=== PATIENT | male | born 1975 | race Caucasian/White ===

== ENCOUNTER 2016-05-10 14:45 | Outpatient (CLI) | payer MEDICAID | END 2016-05-10 15:00 | disposition home or self-care (01) | DX: Z86.79 Personal history of other diseases of the circulatory system (principal) ==

== ENCOUNTER 2016-11-18 15:46 | Emergency (ER) | payer MEDICAID ==
--- NOTE | 2016-11-18 17:54 | ED Physician Documentation ---
PD HPI UPPER EXT INJURY - Stated complaint Stated Complaint: RT ELBOW PX - Chief complaint Chief Complaint: Ext Problem - History obtained from History obtained from: Patient - History of Present Illness Location: Right, Elbow (medial aspect) Type of injury: Other (he does do repetitive use at work). No: Fall, Twist, Blunt / blow Where injury occurred: Work Timing - duration: Weeks (1-2) Timing - details: Gradual onset, Still present Worsened by: Moving, Palpating (medial epicondyle) Associated symptoms: No: Weakness, Numbness, Tingling, Discolored Similar symptoms before: Has not had sx before Recently seen: Not recently seen Review of Systems Constitutional: denies: Fever, Chills Skin: denies: Rash, Lesions PD PAST MEDICAL HISTORY - Past Medical History Cardiovascular: Hypertension Musculoskeletal: Gout - Past Surgical History Past Surgical History: Yes General: Appendectomy HEENT: Other - Present Medications Home Medications: Ambulatory Orders Medication Instructions Recorded Confirmed Dexamethasone [Decadron] 4 mg PO DAILY #5 tablet 11/18/16 HYDROcod/ACETAM 5/325 [Henefer 5/325] 1 tab PO Q6H PRN #15 tablet 11/18/16 Labetalol [Trandate] 100 mg PO DAILY 11/18/16 11/18/16 Losartan [Cozaar] 50 mg PO DAILY 11/18/16 11/18/16 Naproxen [Naprosyn] 500 mg PO BID PRN #20 tablet 11/18/16 Sertraline [Zoloft] 25 mg PO DAILY 11/18/16 11/18/16 amLODIPine [Norvasc] 5 mg PO ONCE 11/18/16 11/18/16 - Allergies Allergies/Adverse Reactions: Allergies Allergy/AdvReac Type Severity Reaction Status Date / Time No Known Drug Allergies Allergy Verified 11/18/16 15:52 - Social History Does the pt smoke?: No Smoking Status: Never smoker Does the pt drink ETOH?: No Does the pt have substance abuse?: No - Immunizations Immunizations are current?: Yes - POLST Patient has POLST: No PD ED PE NORMAL - Vitals Vital signs reviewed: Yes - General General: Alert and oriented X 3, No acute distress, Well developed/nourished - Derm Derm: Normal color, Warm and dry, No rash - Extremities Extremities: Other (right medial condyle elbow with local tenderness. No redness nor swelling. Does not appear as gout. ) - Neuro Neuro: No motor deficit, No sensory deficit Results - Vitals Vitals: Oxygen O2 Source Room air PD MEDICAL DECISION MAKING - ED course Complexity details: reviewed results (normal exray), considered differential ( medial epicondylitis. 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 ), d/w patient Departure - Departure Disposition: 01 Home, Self Care Clinical Impression: Elbow tendonitis Condition: Stable Record reviewed to determine appropriate education?: Yes Instructions: ED Epicondylitis Lateral Elbow Follow-Up: Namrata Tovar FNP [Primary Care Provider] - Dereck Barton MD [Provider Admit Priv/Credential] - Prescriptions: Dexamethasone [Decadron] 4 mg PO DAILY #5 tablet HYDROcod/ACETAM 5/325 [Henefer 5/325] 1 tab PO Q6H PRN #15 tablet PRN Reason: Pain Naproxen [Naprosyn] 500 mg PO BID PRN #20 tablet PRN Reason: Pain Comments: Limit heavy lifting and repetitive use of the right elbow and forearm for a week or so until this is improved. Naproxen twice daily for inflammation. Also add Decadron steroid anti-inflammatory daily for 5 days. Add Tylenol or hydrocodone if needed for pain. Recheck with orthopedics if not improved over the next 4-5 days or completely resolved by 1-2 weeks. Discharge Date/Time: 11/18/16 18:38
[2016-11-18 18:38] VITALS: BP 169/108
== END 2016-11-18 18:38 | disposition home or self-care (01) ==
LOC: ED 15:46
DX: M77.9 Enthesopathy, unspecified (principal); I10 Essential (primary) hypertension; M10.9 Gout, unspecified
CPT/HCPCS: 99282; 99283

== ENCOUNTER 2016-12-19 19:20 | Emergency (ER) | payer MEDICAID ==
[2016-12-19] MEDS ORDERED: LIDOCAINE 2% 10 ML MDV TOP STA (19:42)
[2016-12-19] MEDS ORDERED: DEXAMETHASONE 10 MG/ML VIAL PO STA (19:42)
--- NOTE | 2016-12-19 19:51 | ED Physician Documentation ---
History of Present Illness - Stated complaint Stated Complaint: EAR PX - Chief complaint Chief Complaint: Heent - History obtained from History obtained from: Patient - History of Present Illness Timing: How many weeks ago (3) Pain level max: 4 Pain level now: 4 Improved by: nothing Worsened by: nothing - Additonal information Additional information: Patient is a 41-year-old male who presents to the emergency department with right ear pain for the past 3 weeks. States has had mild nasal congestion, rhinorrhea, cough. No fevers. No sore throat. Has not taken anything for this. States normally has high blood pressure. Review of Systems Constitutional: denies: Fever, Chills Nose: denies: Rhinorrhea / runny nose, Congestion Throat: denies: Sore throat Skin: denies: Rash Musculoskeletal: denies: Neck pain, Back pain Neurologic: denies: Headache PD PAST MEDICAL HISTORY - Past Medical History Past Medical History: Yes Cardiovascular: Hypertension Musculoskeletal: Gout - Past Surgical History Past Surgical History: Yes General: Appendectomy HEENT: Other - Present Medications Home Medications: Ambulatory Orders Medication Instructions Recorded Confirmed Labetalol [Trandate] 100 mg PO DAILY 11/18/16 12/07/16 Losartan [Cozaar] 50 mg PO DAILY 11/18/16 12/07/16 Sertraline [Zoloft] 25 mg PO DAILY 11/18/16 12/07/16 amLODIPine [Norvasc] 5 mg PO ONCE 11/18/16 12/07/16 Dexamethasone [Decadron] 4 mg PO DAILY #5 tablet 12/07/16 Doxycycline Monohydrate 100 mg PO BID #14 tablet 12/07/16 Ofloxacin 5 ml OT TID 12/07/16 12/07/16 Tramadol HCl 50 mg PO Q6H PRN #20 tablet 12/07/16 Cetirizine HCl/Pseudoephedrine 1 each PO BID PRN #30 tab.er.12h 12/19/16 [Zyrtec-D Tablet] predniSONE [Prednisone] 40 mg PO DAILY #10 tablet 12/19/16 - Allergies Allergies/Adverse Reactions: Allergies Allergy/AdvReac Type Severity Reaction Status Date / Time No Known Drug Allergies Allergy Verified 12/19/16 19:34 - Social History Does the pt smoke?: No Smoking Status: Never smoker Does the pt drink ETOH?: No Does the pt have substance abuse?: No - Immunizations Immunizations are current?: Yes - POLST Patient has POLST: No PD ED PE NORMAL - Vitals Vital signs reviewed: Yes - General General: Alert and oriented X 3, No acute distress, Well developed/nourished - HEENT HEENT: Moist mucous membranes, Pharynx benign, Other (B TM retracted, no fluid. no erythema.) - Neck Neck: Supple, no meningeal sign - Cardiac Cardiac: RRR - Respiratory Respiratory: No respiratory distress, Clear bilaterally - Derm Derm: Warm and dry - Neuro Neuro: Alert and oriented X 3 - Psych Psych: Normal mood, Normal affect Results - Vitals Vitals: Vital Signs - 24 hr 12/19/16 12/19/16 12/19/16 19:34 19:39 20:10 Temperature 36.0 C L Heart Rate 81 80 Respiratory 16 20 Rate Blood Pressure 190/130 H 201/130 H 169/104 H O2 Saturation 97 99 Oxygen O2 Source Room air PD MEDICAL DECISION MAKING - ED course Complexity details: considered differential, d/w patient ED course: Patient with retracted B TM. no evidence of infection. Patient is well appearing, non-toxic. No fever. Will place on steroids and decongestants to try to restore eustachian tube function. Patient counseled regarding signs and symptoms for which I believe and urgent re-evaluation would be necessary. Patient with good understanding of and agreement to plan and is comfortable going home at this time This document was made in part using voice recognition software. While efforts are made to proofread this document, sound alike and grammatical errors may occur. Departure - Departure Disposition: 01 Home, Self Care Clinical Impression: Retracted tympanic membrane Qualifiers: Laterality: right Qualified Code(s): H73.891 - Other specified disorders of tympanic membrane, right ear Condition: Good Instructions: Middle Ear Probs Dx Follow-Up: Melanie Haynes ARNP [Primary Care Provider] - Within 1 week Prescriptions: Cetirizine HCl/Pseudoephedrine [Zyrtec-D Tablet] 1 each PO BID PRN #30 tab.er.12h PRN Reason: Nasal Congestion predniSONE [Prednisone] 40 mg PO DAILY #10 tablet Comments: Your eardrum appears retracted today. It does not appear infected. We will try to restore the function of your eustachian tube to equalize the pressure and this should relieve your symptoms. Return if you worsen Discharge Date/Time: 12/19/16 20:07
[2016-12-19] MEDS ORDERED: DEXAMETHASONE 10 MG/ML VIAL ONE (19:59)
[2016-12-19] MEDS ORDERED: CHERRY SYRUP 10 ML UDC PO ONE (19:59)
[2016-12-19] MEDS ORDERED: LIDOCAINE 2% 10 ML MDV ONE (20:01)
[2016-12-19 20:13] VITALS: BP 169/104
== END 2016-12-19 20:07 | disposition home or self-care (01) ==
LOC: ED 19:20
DX: H73.891 Other specified disorders of tympanic membrane, right ear (principal); I10 Essential (primary) hypertension; M10.9 Gout, unspecified
CPT/HCPCS: 99283; A9270

== ENCOUNTER 2016-12-21 16:28 | Emergency (ER) | payer MEDICAID ==
[2016-12-21 16:38] VITALS: BP 166/105
[2016-12-21] MEDS ORDERED: LIDOCAINE TOPICAL 4% 50 ML BOTTLE MM STA (19:26)
[2016-12-21] MEDS ORDERED: ONDANSETRON ODT 4 MG TABLET TL STA (19:26)
--- NOTE | 2016-12-21 19:28 | ED Physician Documentation ---
History of Present Illness - Stated complaint Stated Complaint: RT EAR PX/MED REACTION - Chief complaint Chief Complaint: Heent - Additonal information Additional information: hx from pt 41 male R ear pain seen for same in ED 12/19 and dc eustachian tube dysfn rx prednsione, zyrtec, sudafed one of the meds is making him vomit and his ear still hurts no fever Review of Systems Constitutional: denies: Fever Ears: reports: Ear pain GI: reports: Vomiting PD PAST MEDICAL HISTORY - Past Medical History Cardiovascular: Hypertension Musculoskeletal: Gout - Past Surgical History Past Surgical History: Yes General: Appendectomy HEENT: Other - Present Medications Home Medications: Ambulatory Orders Medication Instructions Recorded Confirmed Labetalol [Trandate] 100 mg PO DAILY 11/18/16 12/21/16 Losartan [Cozaar] 50 mg PO DAILY 11/18/16 12/21/16 Sertraline [Zoloft] 25 mg PO DAILY 11/18/16 12/21/16 amLODIPine [Norvasc] 5 mg PO ONCE 11/18/16 12/21/16 Cetirizine HCl/Pseudoephedrine 1 each PO BID PRN #30 tab.er.12h 12/19/16 [Zyrtec-D Tablet] predniSONE [Prednisone] 40 mg PO DAILY #10 tablet 12/19/16 12/21/16 Lidocaine HCl [Lidocaine HCl 1 ml EACHEAR Q4H #15 ml 12/21/16 Viscous] Oxymetazoline HCl [Afrin] 2 spray NS BID PRN #1 bottle 12/21/16 - Allergies Allergies/Adverse Reactions: Allergies Allergy/AdvReac Type Severity Reaction Status Date / Time No Known Drug Allergies Allergy Verified 12/21/16 16:40 - Social History Does the pt smoke?: No Smoking Status: Never smoker Does the pt drink ETOH?: No Does the pt have substance abuse?: No - Immunizations Immunizations are current?: Yes - POLST Patient has POLST: No PD ED PE NORMAL - Vitals Vital signs reviewed: Yes - HEENT HEENT: Moist mucous membranes, Pharynx benign, Other (R TM severely retracted, no fluid, no erythema) - Cardiac Cardiac: RRR - Respiratory Respiratory: No respiratory distress, Clear bilaterally - Neuro Neuro: Alert and oriented X 3 Results - Vitals Vitals: Vital Signs - 24 hr 12/21/16 16:32 Temperature 37 C Heart Rate 83 Respiratory 16 Rate Blood Pressure 166/105 H O2 Saturation 98 Oxygen O2 Source Room air Departure - Departure Disposition: 01 Home, Self Care Clinical Impression: Eustachian tube disorder Qualifiers: Laterality: right Qualified Code(s): H69.91 - Unspecified Eustachian tube disorder, right ear Condition: Good Instructions: ED Otitis Media Serous Adult Follow-Up: Melanie Haynes ARNP [Primary Care Provider] - Prescriptions: Lidocaine HCl [Lidocaine HCl Viscous] 1 ml EACHEAR Q4H #15 ml Oxymetazoline HCl [Afrin] 2 spray NS BID PRN #1 bottle PRN Reason: nasal sinus ear congestion Comments: Stop the sudafed zyrtec and steroids Use the afrin nose spray each nostril duy a day for three days May use lidocaine drops in your ear 2 drops every 4 hr And please follow up with get your blood pressure rechecked - it was high today
[2016-12-21] MEDS ORDERED: LIDOCAINE TOPICAL 4% 50 ML BOTTLE ONE (19:35)
[2016-12-21] MEDS ORDERED: ONDANSETRON ODT 4 MG TABLET ONE (19:35)
== END 2016-12-21 19:43 | disposition home or self-care (01) ==
LOC: ED 16:28
DX: H69.91 Unspecified Eustachian tube disorder, right ear (principal); I10 Essential (primary) hypertension
CPT/HCPCS: 99283; Q0162

== ENCOUNTER 2017-03-11 01:57 | Emergency (ER) | payer MEDICAID ==
[2017-03-11] MEDS ORDERED: CYCLOBENZAPRINE 10 MG Prepack 2 PO PRN (02:06)
[2017-03-11] MEDS ORDERED: KETOROLAC 60 MG/2 ML VIAL IM STA (02:06)
[2017-03-11] MEDS ORDERED: DEXAMETHASONE 10 MG/ML VIAL PO STA (02:06)
--- NOTE | 2017-03-11 02:10 | ED Physician Documentation ---
PD HPI BACK PAIN - Stated complaint Stated Complaint: LOW BACK PAIN - Chief complaint Chief Complaint: Back Pain - History obtained from History obtained from: Patient - History of Present Illness Timing - onset: How many days ago (4) Timing - details: Gradual onset, Still present Location: Lower, Right Quality: Pain, Spasm, Similar to prior episodes Associated symptoms: No: Fever, Weakness, Numbness, Incontinent of urine Worsened by: Movement Contributing factors: Lifting Similar symptoms before: No diagnosis Recently seen: Not recently seen - Additional information Additional information: Patient is a 41 year old male presenting to the emergency department for low back pain. Patient states that he works for [employer] and he normally has to lift a lot of boxes. Patient states that the pain started on monday (4 days ago) and it has continued. Patient has not taken anything for it. Patient denied any incontinence, retention or numbness. Review of Systems Constitutional: denies: Fever, Chills Eyes: reports: Reviewed and negative Ears: reports: Reviewed and negative Nose: reports: Reviewed and negative Throat: reports: Reviewed and negative Cardiac: reports: Reviewed and negative Respiratory: reports: Reviewed and negative GI: denies: Abdominal Pain, Nausea, Vomiting : denies: Dysuria, Frequency, Unable to Void, Incontinent Skin: denies: Rash Musculoskeletal: reports: Back pain. denies: Extremity pain Neurologic: denies: Focal weakness, Numbness Immunocompromised: denies: Immunocompromised PD PAST MEDICAL HISTORY - Past Medical History Cardiovascular: Hypertension Musculoskeletal: Gout - Past Surgical History Past Surgical History: Yes General: Appendectomy HEENT: Other - Present Medications Home Medications: Ambulatory Orders Medication Instructions Recorded Confirmed Labetalol [Trandate] 100 mg PO DAILY 11/18/16 12/21/16 Losartan [Cozaar] 50 mg PO DAILY 11/18/16 12/21/16 Sertraline [Zoloft] 25 mg PO DAILY 11/18/16 12/21/16 amLODIPine [Norvasc] 5 mg PO ONCE 11/18/16 12/21/16 Cetirizine HCl/Pseudoephedrine 1 each PO BID PRN #30 tab.er.12h 12/19/16 [Zyrtec-D Tablet] predniSONE [Prednisone] 40 mg PO DAILY #10 tablet 12/19/16 12/21/16 Lidocaine HCl [Lidocaine HCl 1 ml EACHEAR Q4H #15 ml 12/21/16 Viscous] Oxymetazoline HCl [Afrin] 2 spray NS BID PRN #1 bottle 12/21/16 Cyclobenzaprine [Flexeril] 10 mg PO TID PRN #10 tablet 03/11/17 - Allergies Allergies/Adverse Reactions: Allergies Allergy/AdvReac Type Severity Reaction Status Date / Time No Known Drug Allergies Allergy Verified 03/11/17 02:06 - Social History Does the pt smoke?: No Smoking Status: Never smoker Does the pt drink ETOH?: No Does the pt have substance abuse?: No - Immunizations Immunizations are current?: Yes - POLST Patient has POLST: No PD ED PE NORMAL - Vitals Vital signs reviewed: Yes - HEENT HEENT: Atraumatic, PERRL - Neck Neck: Supple, no meningeal sign - Cardiac Cardiac: RRR - Respiratory Respiratory: No respiratory distress - Abdomen Abdomen: Soft - Derm Derm: Normal color, Warm and dry - Extremities Extremities: No deformity, Normal ROM s pain - Neuro Neuro: Alert and oriented X 3, No motor deficit, No sensory deficit, Normal speech - Psych Psych: Normal mood PD ED PE EXPANDED - Back Back: Soft tissue tenderness (tenderness to palpatoin of right lumbar paraspinal muscles ) Results - Vitals Vitals: Vital Signs - 24 hr 03/11/17 02:04 Temperature 36.4 C L Heart Rate 75 Respiratory 17 Rate Blood Pressure 184/119 H O2 Saturation 100 Oxygen O2 Source Room air PD MEDICAL DECISION MAKING - ED course Complexity details: reviewed old records, reviewed results, re-evaluated patient , considered differential, d/w patient ED course: Patient was seen and examined at bedside. patient was in no acute distress and had no neurological deficits. patient's symptoms were secondary to a muscle spasm. patient was treated with toradol and decadron and given a flexeril take home packet. patient required no further work up and was stable for discharge with outpatient follow up. Departure - Departure Disposition: 01 Home, Self Care Clinical Impression: Back pain Condition: Good Instructions: ED Spasm Back No Trauma Follow-Up: primary,care provider [Other] - As Needed Prescriptions: Cyclobenzaprine [Flexeril] 10 mg PO TID PRN #10 tablet PRN Reason: Spasms Comments: Your symptoms today are being caused by a muscle spasm. You should take motrin or tylenol as needed for pain and flexeril for spasm. You should alternate between ice and heat on the affected area. You should try to stay active. You cannot drink alcohol, drive or operate heavy machinery while taking the flexeril. You should follow up with your doctor if your symptoms persist. You may return to the emergency department at any time for new worsening or uncontrollable symptoms.
[2017-03-11] MEDS ORDERED: CHERRY SYRUP 10 ML UDC PO ONE (02:17)
[2017-03-11 02:27] VITALS: BP 160/113
== END 2017-03-11 02:28 | disposition home or self-care (01) ==
LOC: ED 01:57
DX: M54.5 Low back pain (principal); I10 Essential (primary) hypertension; M10.9 Gout, unspecified
CPT/HCPCS: 96372; 99283; A9270